=== PATIENT | female | born 1975 | race Caucasian/White ===

== ENCOUNTER 2019-01-11 19:08 | Emergency (ER) | payer BC, MEDICAID ==
[~2019-01-11] VITALS: Ht 165.1 cm; Wt 81.6 kg
[~2019-01-11 19:08] MED LIST: FLUT1DIS27 IH; LEVO200T6 PO; RT-ALBUINH IH; TIOT18CA2 IH
[2019-01-11] MEDS ORDERED: NS IV 1000 ML 1,000 ML IV STA (19:12)
[2019-01-11] MEDS ORDERED: RT-ALBUTEROL/IPRATROPIUM 3 ML (DUONEB) VIAL INH ONE (19:15)
[2019-01-11] MEDS ORDERED: methylPREDNISolone 125 MG (Solu-MEDROL) VIAL IVP ONE (19:15)
[2019-01-11 19:25] LABS: HEMOGLOBIN 13.6 G/DL (11.5-16.0); RED CELL DISTRIBUTION WIDTH 12.5 % (10.0-14.5); WHITE BLOOD COUNT 9.4 10^3/uL (4.3-11.0)
--- NOTE | 2019-01-11 19:27 | ED Cough/URI ---
General Chief Complaint: Respiratory Problems Stated Complaint: SOB/ History of Present Illness Date Seen by Provider: Jan 11, 2019 Time Seen by Provider: 19:05 43-year-old female with a history of asthma here for wheezing, coughing, shortness of breath. This is identical to multiple prior asthma exacerbations. She has only been admitted once and this was while she was , no history of intubations. No fevers. No chest pain. No leg swelling. Cough is nonproductive. She had an asthma attack a week ago and treated herself at home with some left over prednisone for 1 day. Allergies and Home Medications Allergies Coded Allergies: No Known Drug Allergies (Unverified , 10/16/15) Home Medications Albuterol Sulfate 8.5 Gm Hfa.aer.ad, 1-2 PUFF IH PRN PRN for SHORTNESS OF BREATH , (Reported) Fluticasone/Salmeterol 1 Each Blst.w.dev, 1 PUFF IH BID, (Reported) Levothyroxine Sodium 200 Mcg Tablet, 200 MCG PO DAILY, (Reported) Prednisone 20 Mg Tab, 60 MG PO DAILY Prescribed by: ALYSSA DARNELL on 01/11/192010 Tiotropium [place] 1 Inh Aerp, 1 INH IH DAILY, (Reported) Patient Home Medication List Home Medication List Reviewed: Yes Review of Systems Review of Systems Constitutional: no symptoms reported EENTM: no symptoms reported Respiratory: see HPI Cardiovascular: no symptoms reported Gastrointestinal: no symptoms reported Genitourinary: no symptoms reported Musculoskeletal: no symptoms reported Skin: no symptoms reported Psychiatric/Neurological: No Symptoms Reported Hematologic/Lymphatic: No Symptoms Reported Immunological/Allergic: no symptoms reported Past Gaoncgi-Aninqp-Wglvbr Hx Past Med/Social Hx: Reviewed Nursing Past Med/Soc Hx Patient Social History Recent Foreign Travel: No Contact w/Someone Who Travel: No Past Medical History Section Asthma Currently Using CPAP: No Currently Using BIPAP: No Reproductive Disorders: No Hypothyroidsim Family Medical History Patient reports no known family medical history. Physical Exam Vital Signs - First Documented 01/11/19 19:08 Temp 97.9 Pulse 106 Resp 17 B/P (MAP) 106/65 (79) Pulse Ox 94 O2 Delivery High Flow NC O2 Flow Rate 4.00 Capillary Refill : Height: '" Weight: lbs. oz. kg; 29.03 BMI Method: General Appearance: mild distress (speaking in full sentences but appears to be short of breath) HEENT: normal ENT inspection Neck: supple Respiratory: other (good air exchange with moderate expiratory wheezes bilaterally) Cardiovascular: normal peripheral pulses, regular rate, rhythm, no edema, no JVD, no murmur Gastrointestinal: non tender, soft Neurologic/Psychiatric: alert, normal mood/affect, oriented x 3 Skin: warm/dry Progress/Results/Core Measures Suspected Sepsis SIRS Temperature: Pulse: Respiratory Rate: Laboratory Tests 01/11/19 19:17: White Blood Count 9.4 Blood Pressure / Mean: Laboratory Tests 01/11/19 19:17: Creatinine 1.18, Platelet Count 300 Results/Orders Lab Results Laboratory Tests Test 01/11/19 19:17 Range/Units White Blood Count 9.4 4.3-11.0 10^3/uL Red Blood Count 3.93 L 4.35-5.85 10^6/uL Hemoglobin 13.6 11.5-16.0 G/DL Hematocrit 40 35-52 % Mean Corpuscular Volume 102 H 80-99 FL Mean Corpuscular Hemoglobin 35 H 25-34 PG Mean Corpuscular Hemoglobin Concent 34 32-36 G/DL Red Cell Distribution Width 12.5 10.0-14.5 % Platelet Count 300 130-400 10^3/uL Mean Platelet Volume 9.0 7.4-10.4 FL Sodium Level 140 135-145 MMOL/L Potassium Level 3.8 3.6-5.0 MMOL/L Chloride Level 102 98-107 MMOL/L Carbon Dioxide Level 22 21-32 MMOL/L Anion Gap 16 H 5-14 MMOL/L Blood Urea Nitrogen 13 7-18 MG/DL Creatinine 1.18 0.60-1.30 MG/DL Estimat Glomerular Filtration Rate 50 BUN/Creatinine Ratio 11 Glucose Level 97 70-105 MG/DL Calcium Level 9.2 8.5-10.1 MG/DL Troponin T 7 <=10 NG/L Pro-B-Type Natriuretic Peptide 20.4 <75.0 PG/ML My Orders Orders - ALYSSA DARNELL T DO Methylprednisolone Sod Succ (Solu-Medrol (01/11/19 19:15) Albuterol/Ipra Inhalation Soln (Duoneb I (01/11/19 19:15) Svn Small Volume Nebulizer (01/11/19 19:12) Chest 1 View Ap/Pa Only (01/11/19 19:12) Ekg Tracing (01/11/19 19:12) Cbc No Diff (01/11/19 19:12) Basic Metabolic Panel (01/11/19 19:12) Troponin T (01/11/19 19:12) Probnp Fs (01/11/19 19:12) Ns Iv 1000 Ml (Sodium Chloride 0.9%) (01/11/19 19:12) Rx-Albuterol Inhaler (Rx-Proair) (01/11/19 20:21) Medications Given in ED Current Medications Medications Dose Ordered Sig/Ervin Route Start Time Stop Time Status Last Admin Dose Admin Albuterol/ Ipratropium 3 ml ONCE ONCE INH 01/11/19 19:15 01/11/19 19:16 DC 01/11/19 19:40 3 ML Methylprednisolone Sodium Succinate 125 mg ONCE ONCE IVP 01/11/19 19:15 01/11/19 19:16 DC 01/11/19 19:40 125 MG Vital Signs/I&O 01/11/19 01/11/19 19:08 20:25 Temp 97.9 97.9 Pulse 106 106 Resp 17 17 B/P (MAP) 106/65 (79) 106/65 (79) Pulse Ox 94 94 O2 Delivery High Flow NC Nasal Cannula O2 Flow Rate 4.00 4.00 Capillary Refill : Progress Note : Progress Note Patient feels much better after a nebulizer treatment and requests discharge. ECG is without ischemic changes, troponin is negative, BNP is negative, labs are otherwise unremarkable. Chest x-ray does not show an infiltrate. Patient would like to go home. Rx for 6 day burst course of prednisone provided, and at her request an albuterol MDI was also physically provided in the ED to take home. Albuterol to be taken every 4 hours while awake. Patient will return immediately or call 911 for any new or worsening symptoms. Departure Impression Primary Impression: Asthma exacerbation Disposition: 01 HOME, SELF-CARE Condition: Stable Departure-Patient Inst. Referrals: NO,LOCAL PHYSICIAN (PCP/Family) Primary Care Physician Patient Instructions: Asthma, Adult (DC) Scripts Prednisone (Prednisone) 20 Mg Tab 60 MG PO DAILY for 6 Days, #18 TAB 0 Refills Prov: ALYSSA DARNELL DO 01/11/19 ALYSSA DARNELL DO Jan 11, 2019 19:27
[2019-01-11 19:58] LABS: POTASSIUM 3.8 MMOL/L (3.6-5.0)
--- NOTE | 2019-01-11 19:58 | Diagnostic Imaging Report ---
INDICATION: Asthmatic. There is symmetrical hyperexpansion of the lungs with flattening of the diaphragms consistent with air trapping. No substantial airway thickening, however, and no evidence of pneumonia. No failure, effusion or pneumothorax. IMPRESSION: Clear hyperexpanded lungs, otherwise negative. Dictated by: Dictated on workstation # [id number]
[2019-01-11 19:59] LABS: CALCIUM 9.2 MG/DL (8.5-10.1); CREATININE SERUM 1.18 MG/DL (0.60-1.30)
[2019-01-11] MEDS ORDERED: PRD20T PO (20:11)
[2019-01-11] MEDS ORDERED: RX-ALBUTEROL INHALER (PROAIR) 8 GM IH STA (20:21)
[2019-01-11 20:25] VITALS: BP 106/65
--- OUTSIDE RECORDS SUMMARY | 2019-01-11 20:39 | XMS REPORT ---
Author Author MAGUE CRAIG Organization [facility] Address [address] [place] [address] Care Team Providers Care Aoc Director Intelligence Officer Name Role Phone MAGUE CRAIG Unavailable PROBLEMS Unknown Problems ALLERGIES No Known Allergies ENCOUNTERS Encounter Location Date Diagnosis [facility] [id number] [place], [place] [id number] January, Dental examination Z01.20 IMMUNIZATIONS No Known Immunizations SOCIAL HISTORY Never Assessed REASON FOR VISIT walkin PLAN OF CARE Activity Details Follow Up caterina Reason: VITAL SIGNS Blood pressure systolic 87 mmHg 2017-02-08 Blood pressure diastolic 55 mmHg 2017-02-08 MEDICATIONS Medication Instructions Dosage Frequency Start Date End Date Duration Status Tylenol Active Spiriva Respimat Active Acetaminophen-Codeine #3 300-30 MG Orally every 4-6 hrs 1-2 tablets as needed Active Amoxicillin Active Amoxicillin 500 MG Orally 4 times a day 2 capsules stat and then take 1 capsule 6h 10 days Active Wheeling Thyroid Active Advair Diskus Active Naproxen Active RESULTS No Results PROCEDURES Procedure Date Ordered Result Body Site EXTRAC ERUPTED TOOTH/EXPOSED ROOT February 08, 2017 Billing Notes on claim February 08, 2017 INSTRUCTIONS MEDICATIONS ADMINISTERED No Known Medications MEDICAL (GENERAL) HISTORY Type Description Date Medical History asthma Medical History thyroid problems Surgical History Surgical History gallbladder Surgical History wisdome teeth removed
--- OUTSIDE RECORDS SUMMARY | 2019-01-11 20:39 | XMS REPORT | Continuity of Care Document ---
Author Organization Unknown Address Unknown Allergies Active Description Code Type Severity Reaction Onset Reported/Identified Relationship to Patient Clinical Status Yes No Known Drug Allergies [id number] Drug Allergy Unknown N/A 10/16/2015 Medications There is no data. Problems Date Dx Coded Attending Type Code Diagnosis Diagnosed By 07/16/2012 AMBROCIO MOISE APRN 244.9 HYPOTHYROIDISM (UNSPECIFIED ACQUIRED) 07/16/2012 AMBROCIO MOISE APRN 493.90 ASTHMA UNSPECIFIED 04/28/2013 AMBROCIO MOISE APRN 305.1 NONDEPENDENT TOBACCO USE DISORDER 04/28/2013 AMBROCIO MOISE APRN 477.9 ALLERGIC RHINITIS CAUSE UNSPECIFIED 04/28/2013 AMBROCIO MOISE APRN 780.79 MALAISE AND FATIGUE, OTHER 04/28/2013 AMBROCIO MOISE APRN V65.42 COUNSELING ON SUBSTANCE USE AND ABUSE 08/14/2013 AMBROCIO MOISE APRN 460 COMMON COLD, ACUTE NASOPHARYNGITIS 10/17/2015 ONELIA GOVEA DO, Ot K80.12 CALCULUS OF GB W ACUTE AND CHRONIC STARR 10/17/2015 ONELIA GOVEA DO, Ot Z23 ENCOUNTER FOR IMMUNIZATION Procedures There is no data. Results Test Result Range Automated blood complete blood count (hemogram) panel - 01/11/19 19:17 Blood leukocytes automated count (number/volume) 9.4 10*3/uL 4.3-11.0 Blood erythrocytes automated count (number/volume) 3.93 10*6/uL 4.35-5.85 Venous blood hemoglobin measurement (mass/volume) 13.6 g/dL 11.5-16.0 Blood hematocrit (volume fraction) 40 % 35-52 Automated erythrocyte mean corpuscular volume 102 [foz_us] 80-99 Automated erythrocyte mean corpuscular hemoglobin (mass per erythrocyte) 35 pg 25-34 Automated erythrocyte mean corpuscular hemoglobin concentration measurement ( mass/volume) 34 g/dL 32-36 Automated erythrocyte distribution width ratio 12.5 % 10.0-14.5 Automated blood platelet count (count/volume) 300 10*3/uL 130-400 Automated blood platelet mean volume measurement 9.0 [foz_us] 7.4-10.4 Encounters ACCT No. Visit Date/Time Discharge Status Pt. Type Provider Facility Loc./Unit Complaint [id number] 08/14/2013 08:11:00 08/14/2013 23:59:59 CLS Outpatient AMBROCIO MOISE APRN [id number] 10/16/2015 13:30:00 10/17/2015 14:04:00 DIS Outpatient ONELIA GOVEA DO [facility] SDC ACUTE CHOLECYSTITIS [id number] 01/11/2019 19:13:00 ACT Emergency ALYSSA DARNELL DO [facility] ER FS SOB/
--- OUTSIDE RECORDS SUMMARY | 2019-01-11 20:39 | XMS REPORT ---
Author Author MAGUE CRAIG Organization [facility] [address] Address [address] [place] [address] Care Team Providers Care Billboard Installer Name Role Phone MAGUE CRAIG Unavailable PROBLEMS Unknown Problems ALLERGIES No Information ENCOUNTERS Encounter Location Date Diagnosis [facility] [place] [address] [place] [address] January, [facility] [place] [address] [place] [address] January, Dental examination Z01.20 IMMUNIZATIONS No Known Immunizations SOCIAL HISTORY Never Assessed REASON FOR VISIT PLAN OF CARE VITAL SIGNS MEDICATIONS Medication Instructions Dosage Frequency Start Date End Date Duration Status Amoxicillin 875 MG Orally every 12 hrs (january alternate with the Augmentin 875mg tablet every six hours) 1 tablet 10 day(s) Active Magic Mouthwash Apply medicated swab to sore areas of the mouth to numb the pain As needed Dip cotton swab into medication January, As needed Active Augmentin 875-125 MG Orally every 12 hrs (january alternate with Amoxicllin 875mg tablet switching off every six hours) 1 tablet 10 day(s) Active RESULTS No Results PROCEDURES No Known procedures INSTRUCTIONS MEDICATIONS ADMINISTERED No Known Medications MEDICAL (GENERAL) HISTORY Type Description Date Medical History asthma Medical History thyroid problems Surgical History Surgical History gallbladder Surgical History wisdome teeth removed
== END 2019-01-11 20:30 | disposition home or self-care (01) ==
LOC: EDUNIT# 19:08 → ER FS 19:13
DX: J45.901 Unspecified asthma with (acute) exacerbation (principal); E03.9 Hypothyroidism, unspecified; Z79.52 Long term (current) use of systemic steroids; Z98.890 Other specified postprocedural states
CPT/HCPCS: 36415; 71045; 80048; 83880; 84484; 85027; 93005

== ENCOUNTER 2021-05-04 22:49 | Emergency (ER) | payer MEDICAID ==
[~2021-05-04] VITALS: Ht 165.1 cm; Wt 91.6 kg
[~2021-05-04 22:49] MED LIST changes: +PRD20T PO
--- NOTE | 2021-05-04 23:12 | ED Integumentary General ---
General Chief Complaint: Skin/Wound Problems Stated Complaint: FACIAL SWELLING,NOSE SORE Source: patient Exam Limitations: no limitations History of Present Illness Date Seen by Provider: May 04, 2021 Time Seen by Provider: 23:00 Initial Comments Patient is a 45-year old female who presents with facial swelling for 2 days, swelling of her nasal tip and right lower eyelid. Patient states she feels as though there is a pimple on the inside of her right nostril. She was evaluated at [facility] earlier today and diagnosed possible cellulitis and was treated with Rocephin and started on Bactrim. Patient states her symptoms have not improved. No history of MRSA. No fever chills, nausea vomiting or sweats. No change in vision or ocular pain with eye movement. No other acute symptoms or complaints. Timing/Duration: yesterday Severity: mild Location: face Possible Cause: other (Insect bite) Modifying Factors: improves with other Associated Symptoms: other Allergies and Home Medications Allergies Coded Allergies: No Known Drug Allergies (Unverified , 10/16/15) Home Medications Albuterol Sulfate 8.5 Gm Hfa.aer.ad, 1-2 PUFF IH PRN PRN for SHORTNESS OF BREATH, (Reported) Fluticasone/Salmeterol 1 Each Blst.w.dev, 1 PUFF IH BID, (Reported) Levothyroxine Sodium 200 Mcg Tablet, 200 MCG PO DAILY, (Reported) Prednisone 20 Mg Tab, 60 MG PO DAILY Prescribed by: ALYSSA DARNELL on 01/11/192010 Prednisone 20 Mg Tab, 50 MG PO DAILY Prescribed by: TYLER MOSQUEDA on 05/05/21 0001 Last Action: New Order Tiotropium [place] 1 Inh Aerp, 1 INH IH DAILY, (Reported) Patient Home Medication List Home Medication List Reviewed: Yes Review of Systems Review of Systems Constitutional: see HPI EENTM: see HPI Respiratory: see HPI Cardiovascular: see HPI Gastrointestinal: see HPI Genitourinary: see HPI Musculoskeletal: see HPI Skin: see HPI Psychiatric/Neurological: See HPI Endocrine: See HPI Hematologic/Lymphatic: See HPI Past Beiejpu-Fwhxdf-Okwbpu Hx Patient Social History Tobacco Use?: Yes Tobacco type used: Cigarettes Substance use?: No Alcohol Use?: Yes Alcohol Frequency: Once in a while Pt feels they are or have been: No Immunizations Up To Date Influenza Vaccine Up-to-Date: No; Not Current First/Initial COVID19 Vaccinat: JANUARY 2021 Second COVID19 Vaccination [place]: JANUARY 2021 COVID19 Vaccine Vacation Guide: MODERNA Seasonal Allergies Seasonal Allergies: No Past Medical History Surgeries: Yes Section, Gallbladder Respiratory: Yes Asthma Currently Using CPAP: No Currently Using BIPAP: No Cardiac: No Neurological: No Reproductive Disorders: No Female Reproductive Disorders: Denies Genitourinary: No Gastrointestinal: No Musculoskeletal: No Endocrine: Yes Hypothyroidsim HEENT: No Cancer: No Psychosocial: No Integumentary: No Family Medical History Patient reports no known family medical history. Physical Exam Vital Signs Vital Signs - First Documented 05/04/21 22:55 Temp 36.3 Pulse 92 Resp 16 B/P (MAP) 147/92 (110) Pulse Ox 98 O2 Delivery Room Air Capillary Refill : General Appearance: WD/WN, no apparent distress HEENT: normal ENT inspection, pharynx normal, other (Right infraorbital swelling, swelling to tip of nose, no intranasal abscess, erythema or cellulitis appreciated) Neck: non-tender, supple, normal inspection Cardiovascular: normal peripheral pulses Respiratory: lungs clear Progress/Results/Core Measures Results/Orders My Orders Orders - TYLER MOSQUEDA DO Prednisone Tablet (Deltasone Tablet) (05/04/21 23:30) Medications Given in ED Vital Signs/I&O 05/04/21 05/05/21 22:55 00:04 Temp 36.3 36.3 Pulse 92 92 Resp 16 16 B/P (MAP) 147/92 (110) 138/88 (110) Pulse Ox 98 98 O2 Delivery Room Air Room Air Departure Communication (Admissions) Swelling location and pattern is most indicative of insect bite and allergy. Prednisone given. Recommendations are continued Bactrim, prednisone and Benadryl upon returning home with watchful waiting and close PCP follow-up. Return precautions reviewed. Patient verbalizes understanding agreement with discharge instructions prior to departure. Impression Primary Impression: Facial swelling Additional Impression: Allergic reaction Disposition: 01 HOME, SELF-CARE Condition: Stable Departure-Patient Inst. Decision time for Depature: 23:57 Referrals: NO,LOCAL PHYSICIAN (PCP/Family) Primary Care Physician Patient Instructions: Allergic Reaction ED, Methicillin-Resistant Staphylococcus aureus (MRSA) Add. Discharge Instructions: You were evaluated in the emergency department for facial swelling. Your exam is most consistent with an allergic reaction. Please take 50 mg of Benadryl upon returning home and prednisone for the next 5 days. Continue Bactrim and follow-up with your PCP 1 to 2 days for reevaluation. Return to the ED if new or worsening symptoms. All discharge instructions reviewed with patient and/or family. Voiced understanding. Scripts Prednisone (Prednisone) 20 Mg Tab 50 MG PO DAILY, #5 TAB 0 Refills Prov: TYLER MOSQUEDA DO 05/05/21 TYLER MOSQUEDA DO May 04, 2021 23:12
[2021-05-04] MEDS ORDERED: predniSONE 20 MG TAB PO ONE (23:30)
[2021-05-05] MEDS ORDERED: PRD20T PO (00:01)
[2021-05-05 00:04] VITALS: BP 138/88
== END 2021-05-05 00:04 | disposition home or self-care (01) ==
LOC: EDUNIT# 22:49 → ER FS 22:50
DX: R22.0 Localized swelling, mass and lump, head (principal); T78.40XA Allergy, unspecified, initial encounter; J45.909 Unspecified asthma, uncomplicated; E03.9 Hypothyroidism, unspecified; Z79.890 Hormone replacement therapy; Z79.899 Other long term (current) drug therapy
CPT/HCPCS: 99283